=== PATIENT | male | born 1950 | race Caucasian/White ===

== ENCOUNTER 2017-10-27 14:33 | Emergency (ER) | payer SELFPAY ==
[2017-10-27] MEDS ORDERED: Sodium Chloride 0.9% 1,000 ML IV ONE (17:06)
[2017-10-27 17:12] LABS: URINE BILIRUBIN NEGATIVE (NEGATIVE); URINE BLOOD NEGATIVE (NEGATIVE); URINE CLARITY Clear (Clear); URINE COLOR Yellow (YELLOW); URINE GLUCOSE (UA) NORMAL (Normal); URINE LEUKOCYTE ESTERASE NEG Leu/uL (Negative); URINE NITRATE NEGATIVE (NEGATIVE); URINE PROTEIN NEGATIVE (NEGATIVE); URINE UROBILINOGEN NORMAL mg/dL (0.2-1.0)
[2017-10-27 17:54] LABS: BASO % 0.8 % (0.0-2.0); EOS % 0.7 % (0.0-4.0); HEMOGLOBIN 12.8 g/dL (12.0-18.0); LYMPH # 1.4 K/uL (1.0-4.3); LYMPH % 36.3 % (20.0-40.0); MEAN CELL VOLUME 91.9 fL (80.0-94.0); MEAN CORPUSCULAR HEMOGLOBIN 30.5 pg (27.0-31.0); MEAN CORPUSCULAR HGB CONC 33.2 g/dL (33.0-37.0); MEAN PLATELET VOLUME 9.5 fL (7.2-11.7); MONO # 0.2 K/uL (0.0-0.8); MONO % 5.1 % (0.0-10.0); NEUT # 2.2 K/uL (1.8-7.0); NEUT % 57.1 % (50.0-75.0); NRBC % 0.2 % (0.0-2.0); RBC 4.21 Mil/uL (4.40-5.90); WHITE BLOOD COUNT 3.9 K/uL (4.8-10.8)
[2017-10-27 18:06] LABS: INR 1.2; PROTHROMBIN TIME 13.8 SECONDS (9.7-12.2)
[2017-10-27 18:09] LABS: ALB/GLOB RATIO 1.1 (1.0-2.1); ALT/SGPT 21 U/L (21-72); AST/SGOT 21 U/L (17-59); BLOOD UREA NITROGEN 11 mg/dL (9-20); CALCIUM 8.4 mg/dl (8.6-10.4); GFR AFRICAN-AMERICAN > 60; GFR NON-AFRICAN AMERICAN > 60
[2017-10-27] MEDS ORDERED: Iohexol 240 (50 ml) ONE (18:53)
[2017-10-27] MEDS ORDERED: Iohexol 350mg/ml 100 ML ONE (19:31)
[2017-10-27 19:49] VITALS: TEMP 97.8; O2SAT 97
--- NOTE | 2017-10-27 21:02 | CT ---
EXAM: CT Abdomen and Pelvis With Intravenous Contrast EXAM DATE/TIME: 10/27/2017 6:27 PM CLINICAL HISTORY: 67 years old, male; Pain and condition or disease; Kidney or ureter condition; Other: Blood in urine; Abdominal pain; Flank; Lower; Additional info: Suprapubic/back pain. H/o prostate ca TECHNIQUE: Axial computed tomography images of the abdomen and pelvis with intravenous contrast. All CT scans at this facility use one or more dose reduction techniques, viz.: automated exposure control; ma/kV adjustment per patient size (including targeted exams where dose is matched to indication; i.e. head); or iterative reconstruction technique. Coronal and sagittal reformatted images were created and reviewed. CONTRAST: 100 mL of OMNIPAQUE 350 administered intravenously. COMPARISON: There are no prior studies for comparison. FINDINGS: Lower thorax: The heart is mildly enlarged. There is dependent atelectasis at the lung bases. There is a small hiatal hernia. ABDOMEN: Liver: There are hepatic cysts.There is fatty infiltration of the liver. Gallbladder and bile ducts: Gallbladder is collapsed.Common duct is unremarkable. Pancreas: Pancreas is mildly atrophic. Spleen: unremarkable Adrenals: unremarkable Kidneys and ureters: unremarkable Stomach and bowel: Stomach is partially there is fecalization of the mid and distal ileum. Appendix is unremarkable. There is a moderately large amount of stool in the right colon. Left colon is incompletely distended which limits evaluation. There is scattered diverticulosis Appendix: See stomach and bowel PELVIS: Bladder: Bladder is distended. Reproductive: Prostate is enlarged. There is mild prominence of the seminal vesicles. ABDOMEN and PELVIS: Intraperitoneal space: There is no free air or free fluid. Bones/joints: Bony structures are osteopenic. There are degenerative changes. There is compression fracture at L1. Soft tissues: unremarkable Vasculature: There are vascular calcifications. There are multiple phleboliths. Lymph nodes: There is no pathologic adenopathy. IMPRESSION: No renal or ureteral stones or hydronephrosis; enlarged prostate with prominent seminal vesicles; no acute solid visceral abnormality; probable constipation; L1 compression fracture Additional findings as described above.
--- NOTE | 2017-10-27 21:34 | C.PDOC ---
Time Seen by Provider: 10/27/17 16:24 Chief Complaint (Nursing): Male Genitourinary History Per: Patient Onset/Duration Of Symptoms: Days Current Symptoms Are (Timing): Still Present Severity: Moderate Location Of Pain/Discomfort: Suprapubic Quality Of Discomfort: "Pain" Associated Symptoms: Back Pain, Urinary Symptoms Alleviating Factors: None Additional History Per: Prior Records Past Medical History Reviewed: Historical Data, Nursing Documentation, Vital Signs Vital Signs: Last Vital Signs Temp 97.8 F 10/27/17 19:46 Pulse 56 L 10/27/17 19:46 Resp 18 10/27/17 19:46 BP 139/83 10/27/17 19:46 Pulse Ox 97 10/27/17 19:46 - Medical History PMH: Malignancy (Prostate) Surgical History: No Surg Hx Family History: States: Unknown Family Hx - Social History Hx Alcohol Use: No Hx Substance Use: No - Immunization History Hx Tetanus Toxoid Vaccination: No Hx Influenza Vaccination: No Hx Pneumococcal Vaccination: No Review Of Systems Except As Marked, All Systems Reviewed And Found Negative. Constitutional: Negative for: Fever, Weakness Cardiovascular: Negative for: Chest Pain Respiratory: Negative for: Shortness of Breath Gastrointestinal: Positive for: Abdominal Pain Genitourinary: Positive for: Hematuria (?) Musculoskeletal: Positive for: Back Pain. Negative for: Neck Pain Skin: Negative for: Rash Neurological: Negative for: Weakness, Numbness Physical Exam - Physical Exam Appears: Non-toxic, No Acute Distress Skin: Normal Color, Warm, Dry, No Rash Head: Atraumatic, Normacephalic Eye(s): bilateral: Normal Inspection, PERRL, EOMI Neck: Normal ROM, Supple Gastrointestinal/Abdominal: Soft, Tenderness (suprapubic), No Guarding, No Rebound Rectal: Other (Prostate is tender) Back: No CVA Tenderness Male Genital: No Testicular Swelling, No Scrotal Swelling Extremity: Normal ROM Neurological/Psych: Oriented x3, Normal Motor, Normal Sensation ED Course And Treatment - Laboratory Results Result Diagrams: 10/27/17 17:49 10/27/17 17:49 Lab Interpretation: No Acute Changes O2 Sat by Pulse Oximetry: 97 Pulse Ox Interpretation: Normal - CT Scan/US CT abd/pelv Other Rad Studies (CT/US): Read By Radiologist, Radiology Report Reviewed CT/US Interpretation: IMPRESSION: No renal or ureteral stones or hydronephrosis ; enlarged prostate. with prominent seminal vesicles; no acute solid visceral abnormality; probable. constipation; L1 compression fracture. . . Additional findings as described above. Reassessment Condition: Improved Disposition Counseled Patient/Family Regarding: Studies Performed, Diagnosis, Need For Followup, Rx Given - Disposition Referrals: [facility] [Outside] Disposition: HOME/ ROUTINE Disposition Time: 21:39 Condition: STABLE Additional Instructions: Follow up in the clinic for further evaluation and treatment. Return to the ER if you develop fever, trouble urinating, worsening of symptoms or if you have any other concerns. Prescriptions: Ciprofloxacin [Cipro] 1 tab PO BID #14 tab Polyethylene Glycol 3350 [Miralax] 17 gm PO DAILY #7 packet Tamsulosin [Flomax] 0.4 mg PO HS #30 cap Instructions: Vertebral Compression Fracture (ED) Forms: General Discharge Instructions - Clinical Impression Clinical Impression: Compression fracture of L1 lumbar vertebra, Constipation, Prostate enlargement
[2017-10-27 21:48] VITALS: BP 132/74; PULSE 64; RESP 16
== END 2017-10-27 21:46 | disposition home or self-care (01) ==
LOC: C.ER 14:33
DX: M48.56XA Collapsed vertebra, not elsewhere classified, lumbar region, initial encounter for fracture (principal); K59.00 Constipation, unspecified; N40.0 Benign prostatic hyperplasia without lower urinary tract symptoms
CPT/HCPCS: 74177; 80053; 81001; 85025; 85610; 85730; 87086; 96361; 96374; 99284; J1885; J7040; Q9967